=== PATIENT | female | born 1950 | race Caucasian/White ===

== ENCOUNTER → 2016-04-19 | Outpatient (CLI) | payer OTHER ==
[~2016-04-19] VITALS: Ht 175.3 cm; Wt 52.2 kg
[~2016-04-19] MED LIST: ATIVAN2 MG PO; INDERAL60 MG PO; MYSOLINE250 MG PO; OXYCODONE HCL E15 MG PO; SEROQUEL300 MG PO; SEROQUEL400 MG PO
== END | disposition home or self-care (01) ==
LOC: AMB 11:30
PROC: 0DJD8ZZ Inspection of Lower Intestinal Tract, Via Natural or Artificial Opening Endoscopic (ICD-10-PCS; principal; 2016-04-19)
DX: Z12.11 Encounter for screening for malignant neoplasm of colon (principal); K59.03 Drug induced constipation; Z79.891 Long term (current) use of opiate analgesic; K57.32 Diverticulitis of large intestine without perforation or abscess without bleeding; K64.8 Other hemorrhoids; R10.30 Lower abdominal pain, unspecified; K58.9 Irritable bowel syndrome, unspecified; G25.0 Essential tremor; M47.812 Spondylosis without myelopathy or radiculopathy, cervical region; E55.9 Vitamin D deficiency, unspecified; Z83.3 Family history of diabetes mellitus; Z82.49 Family history of ischemic heart disease and other diseases of the circulatory system; Z88.5 Allergy status to narcotic agent; Z91.09 Other allergy status, other than to drugs and biological substances

== ENCOUNTER 2017-06-03 15:32 | Observation (INO) | payer OTHER ==
[~2017-06-03] VITALS: Ht 177.8 cm; Wt 51.4 kg
[2017-06-03 16:21] LABS: BASOPHIL (%) 0.2 % (0-1); EOSINOPHIL (%) 0.2 % (0-5); HEMATOCRIT 38.9 % (36.0-46.0); HEMOGLOBIN 13.4 G/DL (11.9-15.5); IMMATURE GRANULOCYTE (%) 0.3 % (0.0-0.7); LYMPHOCYTE (%) 12.7 % (15-42); LYMPHOCYTE COUNT 0.8 K/uL (1.0-2.8); MCH 33.8 PG (29.0-34.0); MCHC 34.4 G/DL (30.0-36.0); MONOCYTE COUNT 0.7 K/uL (0-0.8); NEUTROPHIL (%) 75.6 % (45-76); NEUTROPHIL COUNT 4.9 K/uL (1.8-6.4); RBC DIS.WIDTH-CV 12.7 % (11.8-14.6); RBC DIS.WIDTH-SD 45.6 % (39-53); RED BLOOD COUNT 3.97 M/uL (3.80-5.20); WHITE BLOOD COUNT 6.5 K/uL (4.1-10.2)
[2017-06-03 16:38] LABS: ALBUMIN 4.3 g/dL (3.2-4.8); CHLORIDE 105 mEq/L (99-109); MAGNESIUM 1.9 mg/dL (1.3-2.7); POTASSIUM 3.4 mEq/L (3.7-5.4); SODIUM 145 mEq/L (136-147)
[2017-06-03 16:40] LABS: GLUCOSE 104 mg/dL (70-99); TOTAL PROTEIN 7.2 g/dL (6.4-8.3)
[2017-06-03 16:42] LABS: TOTAL BILIRUBIN 0.4 mg/dL (0.0-1.0)
[2017-06-03 16:44] LABS: ALKALINE PHOSPHATASE 97 IU/L (3-129); CREATININE 0.8 mg/dL (0.6-1.3); GFR ESTIMATE (CALCULATED) > 59 mL/min/
[2017-06-03 16:45] LABS: UREA NITROGEN (BUN) 20 mg/dL (9-23)
[2017-06-03 16:46] LABS: AST (GOT) 17 IU/L (2-34)
[2017-06-03 16:47] LABS: ALT (GPT) 16 IU/L (3-49); TROP-I INTERPRETATION NEGATIVE; TROPONIN-I < 0.01 ng/mL (0.0-0.30)
[2017-06-03 16:50] LABS: PLATELET COUNT 331 K/uL (156-360)
[2017-06-03 17:26] LABS: APPEARANCE CLEAR ((CLEAR)); BILIRUBIN SMALL; BLOOD NEGATIVE; COLOR YELLOW ((YELLOW)); GLUCOSE (STRIP) NEGATIVE; KETONES 20; LEUKOCYTES NEGATIVE; NITRITE NEGATIVE; PROTEIN (STRIP) 100; SPECIFIC GRAVITY 1.028 (1.000-1.030)
[2017-06-03 17:35] LABS: BACTERIA NONE SEEN /HPF; EPITHELIAL CELLS RARE /HPF; HYALINE CASTS 0-5 /LPF; MUCUS TRACE /LPF; UCUL ADDED? NO; WHITE BLOOD CELLS 0-5 /HPF (0-5)
[2017-06-03 17:37] LABS: PTT 28.5 SEC (25-37)
[2017-06-03] MEDS ORDERED: OXYCODONE HCL10 MG PO (17:53)
[2017-06-03] MEDS ORDERED: FOSAMAX70 MG PO (17:58)
[2017-06-03 21:30] LABS: HDL CHOLESTEROL 45 MG/DL (Desirable>=50); LDL CHOLESTEROL 127 mg/dL (Desirable<100); NON-HDL CHOLESTEROL 145 mg/dL (Desirable<160); TOTAL CHOLESTEROL 190 mg/dL (Desirable<200); TRIGLYCERIDES 91 MG/DL (Normal: <150)
[2017-06-03 22:39] VITALS: BP 132/63
[2017-06-04 04:00] VITALS: BP 100/60
[2017-06-04 07:19] VITALS: BP 110/61
[2017-06-04 10:32] LABS: HEMOGLOBIN A1c (GLYCOHEMOGLOB) 5.5 % (Below 5.7)
[2017-06-04 11:14] VITALS: BP 122/63
[2017-06-04 14:30] VITALS: BP 118/58
[2017-06-04] MEDS ORDERED: ATORVASTATIN CA40 MG PO (16:40)
[2017-06-04] MEDS ORDERED: ASPIR-LOW81 MG PO (16:40)
[2017-06-04] MEDS ORDERED: ROBITUSSIN NIG237 ML PO (16:41)
[2017-06-04] MEDS ORDERED: MYSOLINE250 MG PO (18:00)
[2017-06-04] MEDS ORDERED: SEROQUEL400 MG PO (18:00)
[2017-06-04] MEDS ORDERED: OXYCODONE HCL E15 MG PO (18:01)
[2017-06-04] MEDS ORDERED: ATIVAN2 MG PO (18:01)
[2017-06-04] MEDS ORDERED: INDERAL60 MG PO (18:01)
== END 2017-06-04 18:58 | disposition home or self-care (01) ==
LOC: EME 15:32 → 5WEST 19:50 → EDOF 19:50 → ENRESERV 20:00 → 5WEST 22:19
PROVIDERS: Emergency Medicine; Hospitalist
DX: G45.9 Transient cerebral ischemic attack, unspecified (principal); F41.8 Other specified anxiety disorders; G25.0 Essential tremor; E55.9 Vitamin D deficiency, unspecified; M19.90 Unspecified osteoarthritis, unspecified site; M81.0 Age-related osteoporosis without current pathological fracture; J30.9 Allergic rhinitis, unspecified; K58.9 Irritable bowel syndrome, unspecified; H54.7 Unspecified visual loss; M41.9 Scoliosis, unspecified; Z98.1 Arthrodesis status; Z90.710 Acquired absence of both cervix and uterus; Z82.3 Family history of stroke; Z88.5 Allergy status to narcotic agent; Z91.048 Other nonmedicinal substance allergy status
CPT/HCPCS: 70450; 70551; 71045; 80053; 80061; 81003; 83036; 83735; 84484; 85025; 85610; 85730; 87040; 92523 GN; 92610 GN; 93005; 93306; 93880; 99281; 99285; G0378; G8978 GP CI; G8979 GP CI; G8980 GP CI; G8987 GO CI; G8988 CI; G8989 GO CI; G8999 GN CJ; G9186 GN CJ; J1644; J2060; J7030